=== PATIENT | male | born 1990 | race Caucasian/White ===

== ENCOUNTER 2018-11-13 16:58 | Emergency (ER) | payer MEDICAID, OTHER ==
[2018-11-13] MEDS ORDERED: HYDROcod/ACETAM 5/325 MG TABLET PO STA (17:24)
--- NOTE | 2018-11-13 17:27 | ED Physician Documentation ---
PD HPI UPPER EXT INJURY - Stated complaint Stated Complaint: LEFT SHOULDER INJURY - Chief complaint Chief Complaint: Ext Problem - History obtained from History obtained from: Patient - History of Present Illness Type of injury: Other (He was working on a car 2 days ago, it was up on a ramp and as he was taking the transmission out it started sliding down. He was laying on his left shoulder and the chest he came down on his right shoulder and he rolled over and heard a pop in his left shoulder with moderate pain ever since and difficulty with abduction. He also has milder pain in the right ribs. He is right-handed. No other injuries.) Review of Systems Ten Systems: 10 systems reviewed and negative Constitutional: denies: Fever, Chills Respiratory: denies: Dyspnea, Cough GI: denies: Abdominal Pain, Nausea, Vomiting PD PAST MEDICAL HISTORY - Past Medical History Cardiovascular: None Respiratory: None Endocrine/Autoimmune: None Psych: None Musculoskeletal: None - Past Surgical History Past Surgical History: Yes - Present Medications Home Medications: Ambulatory Orders Medication Instructions Recorded Confirmed Hydrocodone/Acetaminophen 1 - 2 each PO Q6H PRN #14 tablet 11/13/18 [Hydrocodon-Acetaminophen 5-325] - Allergies Allergies/Adverse Reactions: Allergies Allergy/AdvReac Type Severity Reaction Status Date / Time No Known Drug Allergies Allergy Verified 07/23/14 00:09 - Social History Does the pt smoke?: Yes Smoking Status: Current every day smoker Does the pt drink ETOH?: Yes Does the pt have substance abuse?: No - Immunizations Immunizations are current?: Yes Immunizations: TDAP >10years/unknown - POLST Patient has POLST: No PD ED PE NORMAL - Vitals Vital signs reviewed: Yes - General General: Alert and oriented X 3, No acute distress - HEENT HEENT: PERRL - Neck Neck: Supple, no meningeal sign, No bony TTP - Cardiac Cardiac: RRR, No murmur, Other (Mildly tender to the right mid ribs laterally, no deformity. No overlying ecchymosis.) - Respiratory Respiratory: No respiratory distress, Clear bilaterally - Abdomen Abdomen: Non tender - Extremities Extremities: Other (Moderate tenderness over both the AC joint on the left as well as the glenohumeral joint without deformity.) - Neuro Neuro: Alert and oriented X 3, Normal speech Results - Vitals Vitals: Vital Signs - 24 hr 11/13/18 17:20 Temperature 36.9 C Heart Rate 66 Respiratory 18 Rate Blood Pressure 189/112 H O2 Saturation 98 Oxygen O2 Source Room air - Rads (name of study) X-rays of the right ribs and chest and left shoulder Radiology: EMP read contemporaneously (Official read is negative, I suspect there is a mild left AC joint separation.) Departure - Departure Disposition: 01 Home, Self Care Clinical Impression: Separation of left acromioclavicular joint Qualifiers: Encounter type: initial encounter Qualified Code(s): S43.102A - Unspecified dislocation of left acromioclavicular joint, initial encounter Contusion of rib on right side Qualifiers: Encounter type: initial encounter Qualified Code(s): S20.211A - Contusion of right front wall of thorax, initial encounter Condition: Good Record reviewed to determine appropriate education?: Yes Instructions: ED Contusion Chest Wall, ED Sprain AC Joint Follow-Up: [facility] [Provider Group] - Within 1 week Prescriptions: Hydrocodone/Acetaminophen [Hydrocodon-Acetaminophen 5-325] 1 - 2 each PO Q6H PRN #14 tablet PRN Reason: pain Comments: You can come out of the sling and I recommend coming out of the sling a few times a day to start gentle range of motion exercises. Follow-up with the orthopedic surgeons, call tomorrow for an appointment. Return for new or worsening symptoms. Do not drink or drive while taking narcotic pain medication. Note that many narcotic pain relievers also contain Tylenol/acetaminophen. Please ensure that your total dose of acetaminophen from all sources does not exceed 3 g (3000 mg) per day. You may get constipated while on this medication. Take a stool softener such as Colace twice a day while you are on it. Also add an acib-agr-fktflhg laxative such as senna or MiraLAX on any day that you do not have a bowel movement. If you received a narcotic pain medication or sedative while in the emergency department, do not drive for the next 24 hours. Your blood pressure was elevated today on check into the emergency department. This does not mean that you have hypertension, it is a common phenomenon to come to the emergency department and have elevated blood pressure. I recommend that you see your primary care physician within the week to have it rechecked when you are feeling better. Forms: Activity restrictions
--- NOTE | 2018-11-13 18:17 | XRAY Report ---
Reason: rib/shoulder inj Procedure Date: 11/13/2018 Accession Number: [id number] / [id number] Procedure: XR - Ribs w/PA Chest RT CPT Code: FULL RESULT: EXAM: RIGHT RIB RADIOGRAPHY EXAM DATE: 11/13/2018 05:45 PM. CLINICAL HISTORY: Rib/shoulder inj. COMPARISON: None available. TECHNIQUE: 1 view of the chest and 4 views of the ribs. FINDINGS: Bones: A radiopaque marker was placed at the region of interest. No acute displaced right rib fracture visualized. Lungs: No focal opacities. No pneumothorax. No pleural effusions. Mediastinum: Heart and mediastinal contours are unremarkable. Other: None. IMPRESSION: No acute cardiopulmonary findings. No acute displaced right rib fracture visualized. [facility]
--- NOTE | 2018-11-13 18:19 | XRAY Report ---
Reason: rib/shoulder inj Procedure Date: 11/13/2018 Accession Number: [id number] / [id number] Procedure: XR - Shoulder 3 View LT CPT Code: FULL RESULT: EXAM: LEFT SHOULDER RADIOGRAPHY EXAM DATE: 11/13/2018 05:50 PM. CLINICAL HISTORY: Rib/shoulder inj. COMPARISON: None available. TECHNIQUE: 3 views. FINDINGS: Bones: No acute fracture or dislocation. Joints: The glenohumeral and acromioclavicular joints are intact. Soft tissues: Unremarkable. IMPRESSION: No acute fracture or dislocation visualized. [facility]
[2018-11-13 18:42] VITALS: BP 157/94
== END 2018-11-13 18:41 | disposition home or self-care (01) ==
LOC: ED 16:58
DX: S43.102A Unspecified dislocation of left acromioclavicular joint, initial encounter (principal); S20.211A Contusion of right front wall of thorax, initial encounter; W20.8XXA Other cause of strike by thrown, projected or falling object, initial encounter; Y93.89 Activity, other specified; R03.0 Elevated blood-pressure reading, without diagnosis of hypertension; F17.200 Nicotine dependence, unspecified, uncomplicated
CPT/HCPCS: 71101; 73030; 99284; A9270